=== PATIENT | male | born 1960 | race Caucasian/White ===

== ENCOUNTER 2016-07-31 00:45 | Inpatient (IN) | payer OTHER ==
[2016-07-31] MEDS ORDERED: HYDROmorphone 1 MG INJECTION IV ONE ×2 (01:12→02:12)
[2016-07-31] MEDS ORDERED: NS 1,000 ML IV ONE ×2 (01:12)
[2016-07-31] MEDS ORDERED: SODIUM CHLORIDE 0.9% 3 ML FLUSH FLUSH PRN (01:12)
[2016-07-31] MEDS ORDERED: ONDANSETRON HCL 4 MG/2 ML VIAL IV ONE (01:12)
--- NOTE | 2016-07-31 01:20 | EDPRACDOC ---
- General Information Chief Complaint: Abdominal Pain Stated Complaint: ABDOMINAL PAIN Time Seen by Provider: 07/31/16 01:12 Information Source: Patient Mode Of Arrival: Car Home Medications: Home Medications Atorvastatin Calcium [Lipitor] 40 mg PO DAILY 01/02/13 Azelastine HCl 2 inh NS BID 01/02/13 Esomeprazole Mag Trihydrate [Nexium] 40 mg PO DAILY 01/02/13 Metformin HCl [Metformin HCl ER] 500 mg PO DAILY 01/02/13 Olmesartan/Amlodipin/Hcthiazid [Tribenzor 40-5-12.5 mg Tablet] 1 each PO DAILY 01/02/13 Allergies/Adverse Reactions: Allergies Allergy/AdvReac Type Severity Reaction Status Date / Time No Known Allergies Allergy Verified 01/02/13 11:39 - 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 PT STATES HIS ABD FEELS TIGHT AND HE HAS NOT HAD BOWEL MOVEMENT TODAY. Pain Location: Reports: Diffuse Pain Context: Reports: Spontaneous Pain Severity: Severe Pain Quality: Reports: Aching, Sharp, Stabbing Pain Radiation: Reports: No Radiation Modifying Factors: improves with: Position, Movement Associated Signs & Symptoms: Reports: Nausea Oral Intake: Decreased Urinary Output: Normal - Treatment Prior to ED Arrival Reported Medications/Treatment [facility] Treatment BLS IV No ED Past Medical History - History Reviewed Yes Nurses notes reviewed and agree except as marked Travel Outside of [place] in the Last 3 Months?: No - Patient Medical History Cardiac History: Reports: Hypertension, Hypercholesterolemia Psychological History: Denies: Depression Systemic History: Reports: Diabetes (PREDIABETES PER PT). Denies: Cancer - Family Medical History Reports: Hypertension (PARENTS), Diabetes (PARENTS), Cancer (MOM-KIDNEY). Denies: Stroke, Cardiac Disorders - Social Medical History Smoking Status: Never smoker ETOH: None Substance Abuse: None Lives With: Spouse Lives In: Home EDM Review of Systems - Review of Systems ROS Negative Except as Marked: Yes All systems reviewed and were negative except as marked Constitutional: No Symptoms Reported. negative: Fever, Chills, Weakness, Fatigue, Loss of Appetite Eyes: No Symptoms Reported. negative: Redness, Blurred Vision, Double Vision, Discharge, Pain, Light Sensitive, Photophobia Ears: No Symptoms Reported. negative: Pain, Hearing Loss, Drainage, Ear Pulling Throat: No Symptoms Reported. negative: Pain, Swelling Nose: No Symptoms Reported. negative: Congestion, Bleeding, Discharge, Injection, Swelling, Deformity, Ecchymosis, Tender, Abrasion, Laceration Mouth: No Symptoms Reported. negative: Pain, Drooling Respiratory: No Symptoms Reported. negative: Cough, Brassy Cough, Barky Cough, Shortness of Breath, Wheezing, Hemoptysis Cardiovascular: No Symptoms Reported. negative: Chest Pain, Cyanosis, Edema, Orthopnea, Palpitations, PND, Syncope, Skin Mottling Gastrointestinal: Nausea, Pain. negative: Constipation, Diarrhea, Formula Intolerance, Melena, Vomiting Genitourinary: No Symptoms Reported. negative: Dysuria, Hematuria, Frequency, Discharge, Bleeding, Testicular Pain, Neurological: No Symptoms Reported. negative: Headache, Dizziness, Seizure, Numbness, Weakness, Speech Difficulty, Gait Difficulty Musculoskeletal: No Symptoms Reported. negative: Neck, Chestwall, Ribs, Back, Shoulder, Arm, Elbow, Forearm, Wrist, Hand, Pelvis, Hip, Femur, Knee, Leg, Ankle , Foot Integumentary: No Symptoms Reported. negative: Itching, Rash, Bruising, Wound Allergic/Immunologic: No Symptoms Reported. negative: Hives, Itching Hematologic: No Symptoms Reported. negative: Lymphadenopathy, Easy Bruising, Easy Bleeding Endocrine: No Symptoms Reported. negative: Weight Gain, Weight Loss Psychiatric: No Symptoms Reported. negative: Anxiety, Depression, Hallucinations, Insomnia, Suicidal - Physical Exam Constitutional: Alert (Awake, UNCOMFORTABLE) Oriented to: Time, Person, Place Last recorded Vital Signs: Last Vital Signs Temp 98.6 F 07/31/16 00:49 Pulse 75 07/31/16 03:18 Resp 20 07/31/16 03:18 BP 115/74 07/31/16 03:18 Pulse Ox 94 07/31/16 03:18 Oxygen Pulse Oxygen Saturation 94 O2 Device Nasal Cannula Oxygen Flow Rate 2 Fraction of Inspired Oxygen ( FIO2) - HEENT Head: Normal ( normocephalic) Eye Exam: Normal (PERRL, EOMI, Sclera white) Oropharynx: Normal (Pharynx:Moist without exudate,Gums-no swelling) Tympanic Membrane: Normal ENT EAC: Normal TMJ: Normal Nose: No Symptoms Reported (septum midline) Neck: Normal (FROM, trachea at midline) - Respiratory/Cardiovascular Respiratory: Normal - CTA (BBS clear to auscultation without adventitious sounds ) Cardiovascular: Normal (RRR without murmur, gallop or rub) - GI Auscultation: Normal (NABS) Palpation: Normal (Soft,No rebound or guarding, non distended) Tenderness: Moderate, Guarding, RUQ, Epigastric, Periumbilical Rodriguez's Sign: Negative Rectal Exam: Normal - Bladder: Normal - Musculoskeletal Back: Normal (Non-Tender) Extremities: Normal (Normal tone, Pulses 2+ No cyanosis or edema, FROM) - Integumentary Skin: Normal, Warm, Dry Lymphatics: Normal (no adenopathy) - Neurologic Memory Impaired: Normal Motor Function: Normal (Normal tone, Pulses 2+ No cyanosis or edema, FROM) Cranial Nerve: Normal (CN II-X11 intact sensation, strength 5/5) Cerebellar: Normal Mood Description: Normal Perception: Normal - Differential Diagnosis Bowel Obstruction, Cholecystitis, Cholelithiasis, Pancreatitis, UTI - Results 07/31/16 01:11 07/31/16 01:11 WBC 18.0 xk/uL (3.8-10.8) H 07/31/16 01:11 RBC 5.22 xM/uL (4.70-6.10) 07/31/16 01:11 Hgb 13.8 g/dL (14.0-18.0) L 07/31/16 01:11 Hct 41.6 % (42-52) L 07/31/16 01:11 MCV 80 fL (80-94) 07/31/16 01:11 MCH 26.4 pg (27-32) L 07/31/16 01:11 MCHC 33.2 g/dl (33-36) 07/31/16 01:11 RDW 14.3 % (11.5-14.5) 07/31/16 01:11 Plt Count 341 xk/uL (130-400) 07/31/16 01:11 MPV 8.4 fL (7.4-10.4) 07/31/16 01:11 Neut % (Auto) 69.2 % (45-76) 07/31/16 01:11 Lymph % (Auto) 22.8 % (17-44) 07/31/16 01:11 [place] % (Auto) 6.4 % (3-10) 07/31/16 01:11 Eos % (Auto) 0.9 % (0-5) 07/31/16 01:11 Baso % (Auto) 0.7 % (0-2) 07/31/16 01:11 Absolute Neuts (auto) 12.42 xk/uL (1.7-8.2) H 07/31/16 01:11 Absolute Lymphs (auto) 3.96 xk/uL (0.65-4.75) 07/31/16 01:11 Sodium 136 mEq/L (137-146) L 07/31/16 01:11 Potassium 3.3 mEq/L (3.5-5.1) L 07/31/16 01:11 Chloride 96 mEq/L (98-107) L 07/31/16 01:11 Carbon Dioxide 26 mMOL/L (22-33) 07/31/16 01:11 Anion Gap 17 mEq/L (8-16) H 07/31/16 01:11 BUN 16 MG/DL (9-20) 07/31/16 01:11 Creatinine 1.00 MG/DL (0.66-1.25) 07/31/16 01:11 Estimated GFR (MDRD) > 60 mL/min (>=60) 07/31/16 01:11 Glucose 193 MG/DL (70-99) H 07/31/16 01:11 Calculated Osmolality 268 MOs/Kg (270-290) L 07/31/16 01:11 Lactic Acid 2.8 mEq/L (0.7-2.1) H 07/31/16 01:30 Calcium 10.0 MG/DL (8.4-10.2) 07/31/16 01:11 Total Bilirubin 0.8 MG/DL (0.2-1.3) 07/31/16 01:11 AST 24 IU/L (17-59) 07/31/16 01:11 ALT 36 IU/L (21-72) 07/31/16 01:11 Alkaline Phosphatase 113 IU/L (38-126) 07/31/16 01:11 Total Protein 7.2 G/DL (6.3-8.2) 07/31/16 01:11 Albumin 4.3 G/DL (3.5-5.0) 07/31/16 01:11 Lipase 91 U/L (23-300) 07/31/16 01:11 Urine Color Yellow 07/31/16 01:30 Urine Clarity Clear 07/31/16 01:30 Urine pH 6.0 (5.0-8.0) 07/31/16 01:30 Ur Specific [place] 1.015 (1.003-1.035) 07/31/16 01:30 Urine Protein 1+ (NEG/TRACE) H 07/31/16 01:30 Urine Glucose (UA) Neg (NEGATIVE) 07/31/16 01:30 Urine Ketones 1+ (NEGATIVE) H 07/31/16 01:30 Urine Occult Blood Neg (NEG/TRACE) 07/31/16 01:30 Urine Nitrite Neg (NEGATIVE) 07/31/16 01:30 Urine Bilirubin Neg (NEGATIVE) 07/31/16 01:30 Urine Urobilinogen <2.0 MG/DL (0-1) 07/31/16 01:30 Ur Leukocyte Esterase Neg (NEGATIVE) 07/31/16 01:30 Urine Mucus Large (NEG/OCC) 07/31/16 01:30 Lab Results 07/31/16 07/31/16 07/31/16 01:30 01:30 01:11 WBC 18.0 H RBC 5.22 Hgb 13.8 L Hct 41.6 L MCV 80 MCH 26.4 L MCHC 33.2 RDW 14.3 Plt Count 341 MPV 8.4 Neut % (Auto) 69.2 Lymph % (Auto) 22.8 [place] % (Auto) 6.4 Eos % (Auto) 0.9 Baso % (Auto) 0.7 Absolute Neuts (auto) 12.42 H Absolute Lymphs (auto) 3.96 Sodium Potassium Chloride Carbon Dioxide Anion Gap BUN Creatinine Estimated GFR (MDRD) Glucose Calculated Osmolality Lactic Acid 2.8 H Calcium Total Bilirubin AST ALT Alkaline Phosphatase Total Protein Albumin Lipase Urine Color Yellow Urine Clarity Clear Urine pH 6.0 Ur Specific [place] 1.015 Urine Protein 1+ H Urine Glucose (UA) Neg Urine Ketones 1+ H Urine Occult Blood Neg Urine Nitrite Neg Urine Bilirubin Neg Urine Urobilinogen <2.0 Ur Leukocyte Esterase Neg Urine Mucus Large 07/31/16 01:11 WBC RBC Hgb Hct MCV MCH MCHC RDW Plt Count MPV Neut % (Auto) Lymph % (Auto) [place] % (Auto) Eos % (Auto) Baso % (Auto) Absolute Neuts (auto) Absolute Lymphs (auto) Sodium 136 L Potassium 3.3 L Chloride 96 L Carbon Dioxide 26 Anion Gap 17 H BUN 16 Creatinine 1.00 Estimated GFR (MDRD) > 60 Glucose 193 H Calculated Osmolality 268 L Lactic Acid Calcium 10.0 Total Bilirubin 0.8 AST 24 ALT 36 Alkaline Phosphatase 113 Total Protein 7.2 Albumin 4.3 Lipase 91 Urine Color Urine Clarity Urine pH Ur Specific [place] Urine Protein Urine Glucose (UA) Urine Ketones Urine Occult Blood Urine Nitrite Urine Bilirubin Urine Urobilinogen Ur Leukocyte Esterase Urine Mucus - Departure Disposition: Admit IP To This Hospital Condition: Stable Final Diagnosis: Small bowel obstruction Instructions: Bowel Obstruction (ED) Education/Counseling Given To: Patient Education/Counseling Given Regarding: Diagnosis, Treatment, Prognosis, Follow Up Referrals: None,No Provider [NonStaff] - One Week Prescriptions: No Action Azelastine HCl 2 inh NS BID Atorvastatin Calcium [Lipitor] 40 mg PO DAILY Olmesartan/Amlodipin/Hcthiazid [Tribenzor 40-5-12.5 mg Tablet] 1 each PO DAILY Metformin HCl [Metformin HCl ER] 500 mg PO DAILY Esomeprazole Mag Trihydrate [Nexium] 40 mg PO DAILY Decision to Admit Time: 03:25 Decision to admit date: 07/31/16 Decision to admit: from ED - Physician Consulted Surgery Time Called: 03:25 Provider Called: Monster Bain (WILL ADMIT)
[2016-07-31 01:27] LABS: AUTOMATED BASOPHIL 0.7 % (0-2); AUTOMATED EOSINOPHIL 0.9 % (0-5); AUTOMATED LYMPH 22.8 % (17-44); AUTOMATED MONOCYTE 6.4 % (3-10); AUTOMATED NEUTROPHIL 69.2 % (45-76); MPV 8.4 fL (7.4-10.4)
[2016-07-31 01:35] LABS: BLOOD UREA NITROGEN 16 MG/DL (9-20); CALCULATED OSMOLALITY 268 MOs/Kg (270-290); CHLORIDE 96 mEq/L (98-107); GLUCOSE 193 MG/DL (70-99); SODIUM LEVEL 136 mEq/L (137-146); TOTAL PROTEIN 7.2 G/DL (6.3-8.2)
[2016-07-31 01:52] LABS: LEUKOCYTES/URINE NEG (NEGATIVE); NITRITE/URINE NEG (NEGATIVE); URINE OCCULT BLOOD NEG (NEG/TRACE)
[2016-07-31] MEDS ORDERED: Pharmacy Review for Metformin - IV Contrast Given SCH (02:00)
[2016-07-31] MEDS ORDERED: PROMETHAZINE 25 MG/ML VIAL IV ONE (02:42)
[2016-07-31] MEDS ORDERED: HYDROmorphone 1 MG INJECTION IV SCH (03:00)
--- NOTE | 2016-07-31 03:04 | DIRPT ---
CLINICAL DATA: Diffuse lower abdominal pain and nausea. EXAM: CT ABDOMEN AND PELVIS WITH CONTRAST TECHNIQUE: Multidetector CT imaging of the abdomen and pelvis was performed using the standard protocol following bolus administration of intravenous contrast. CONTRAST: 100 mL Isovue 370 COMPARISON: 09/06/2009 FINDINGS: The lung bases are clear. Moderate-sized esophageal hiatal hernia. Mild dilatation of lower esophagus is fluid filled suggesting reflux or dysmotility. Mild diffuse fatty infiltration of the liver. The gallbladder, spleen, pancreas, adrenal glands, kidneys, abdominal aorta, inferior vena cava, and retroperitoneal lymph nodes are unremarkable. Stomach is decompressed. Mild dilatation of fluid-filled small bowel with transition zone in the right lower quadrant. There is evidence of wall thickening in the small bowel at the transition zone. Mild edema in the adjacent very. This could represent inflammatory stricture. Consider Crohn's disease or enteritis. Ischemia felt less likely. Colon is not abnormally distended. Stool-filled colon. Pelvis: The appendix is normal. Prostate gland is enlarged, measuring 4.9 cm transverse dimension. Bladder wall is not thickened. Small amount of free fluid in the pelvis is likely reactive. No pelvic mass or lymphadenopathy. Degenerative changes in the spine. No destructive bone lesions. IMPRESSION: Mildly dilated fluid-filled small bowel with transition zone in the right lower quadrant. There appears to be wall thickening at the transition zone suggesting inflammatory stricture. Consider inflammatory bowel disease or enteritis. Mild mucosal edema and small amount of fluid in the pelvis. Electronically Signed By: José Luis Dai M.D. On: 07/31/2016 03:02
[2016-07-31] MEDS ORDERED: SIMETHICONE 80 MG TAB PO PRN (03:32)
[2016-07-31] MEDS ORDERED: IBUPROFEN 600 MG TAB PO PRN (03:32)
[2016-07-31] MEDS ORDERED: DEXTROSE 25 GM/50 ML PFS IV PRN (03:32)
[2016-07-31] MEDS ORDERED: PROMETHAZINE 25 MG/ML VIAL IV PRN (03:32)
[2016-07-31] MEDS ORDERED: ACETAMINOPHEN 325 MG/TAB TABLET PO PRN (03:32)
[2016-07-31] MEDS ORDERED: ONDANSETRON HCL 4 MG/2 ML VIAL IV PRN (03:32)
[2016-07-31] MEDS ORDERED: LORAZEPAM 2 MG/ML VIAL IV PRN (03:32)
[2016-07-31] MEDS ORDERED: ACETAMINOPHEN 650 MG SUPP PR PRN (03:32)
[2016-07-31] MEDS ORDERED: DIPHENHYDRAMINE 25 MG CAP PO PRN (03:32)
[2016-07-31] MEDS ORDERED: GLUCOSE (ORAL GEL) 15 GM TUBE PO PRN (03:32)
[2016-07-31] MEDS ORDERED: GLUCAGON 1 MG VIAL SQ PRN (03:32)
[2016-07-31] MEDS ORDERED: Aluminum;Magnesium;Simethicone 30 ML UDC PO PRN (03:32)
[2016-07-31] MEDS ORDERED: Albuterol/Ipratropium Neb 3 ML NEB NEB PRN ×2 (03:32)
[2016-07-31] MEDS ORDERED: MORPHINE 2 MG/ML INJECTION IV PRN (03:32)
[2016-07-31] MEDS: FENTANYL 100 MCG/2 ML VIAL IV ONE ×2 (03:39→04:02)
[2016-07-31] MEDS: HYDROmorphone 1 MG INJECTION IV SCH ×4 (03:39→06:04)
[2016-07-31 04:27] VITALS: BMI 31.8
[2016-07-31] MEDS: SODIUM CHLORIDE 0.9% 3 ML FLUSH FLUSH SCH ×2 (04:53→17:56)
[2016-07-31] MEDS: LR 1,000 ML IV SCH ×4 (04:57→19:58)
[2016-07-31] MEDS ORDERED: Vaccine Screening Complete SCH (05:00)
[2016-07-31] MEDS: REGULAR INSULIN 100 UNITS/ML - 3 ML VIAL SQ SCH ×4 (07:22→23:12)
--- NOTE | 2016-07-31 09:56 | HISTPHYS ---
- Chief Complaint abdominal pain - History of Present Illness This is a 56 year old male that began having abdominal pain on 07/30/16. He reports that it became worse at midnight, prompting him to go to the emergency department. He reports that he had emesis x [address] scan. He reports that he had a regular bowel movement on the morning before admission to the hospital. He denies any blood in his stool. He reports that he had felt very bloated. He states that currently he does not feel bloated and that the pain has resolved. He denies any sharp pains in his abdomen. The patient reports that in 1980 he became very sick, vomited and 'tore the lining of his stomach'. The patient reports that he has had a colonoscopy by Dr. Charlton three or four years ago. - Medical History Cardiac History: Reports: Hypertension Respiratory History: Denies: No Significant History, Asthma, COPD, Bronchitis, Asbestosis, Aspiration Pneumonia, Cough, Chronic Bronchitis, Pneumonia, Emphysema, Pulmonary Embolism, Other GI/ History: Denies: No Significant History, Renal Disease, Renal Failure, Renal (Kidney) Cancer, Kidney (Renal Surgery), Urinary Tract Infection, Kidney Stones, Liver Failure, Gastroesophageal Reflux, Ulcer, IBD, Diverticulosis, Pancreatitis, BPH, PMH GI Yes/No Other Musculoskeletal History: Denies: No Significant History, Arthritis, Gout, Rheumatoid Arthritis, Osteoarthritis, Other Systemic History: Reports: Diabetes Neurological History: Denies: No Significant History, Cerebrovascular Accident, Seizures, Migraine, Dementia, Epilepsy, [place] Syndrome, Parkinson's, Metabolic encephalopathy, Multiple Sclerosis, Myasthenia Gravis, Toxic Encephalopathy, Other Psychological History: Denies: No Significant History, Depression, Anxiety, Schizophrenia, Bipolar Disorder, Alcoholism, Substance Use Disorder, PMH Psychological hx Yes/No Other - Surgical History Denies: No Significant History, Appendectomy, Cholecystectomy, CABG, Hysterectomy, Angioplasty, Cardiac Catheterization, Hernia Surgery, Tonsillectomy, Tonsillectomy/Adnoidectomy, Other - Medictions/Allergies Allergies No Known Allergies Allergy (Verified 07/31/16 04:35) Current Medication List: Reviewed Home Medications Atorvastatin Calcium [Lipitor] 20 mg PO DAILY 01/02/13 Azelastine HCl 2 inh NS BID 01/02/13 Esomeprazole Mag Trihydrate [Nexium] 40 mg PO DAILY 01/02/13 Olmesartan/Amlodipin/Hcthiazid [Tribenzor 40-5-12.5 mg Tablet] 1 each PO DAILY 01/02/13 Sitagliptin Phos/Metformin HCl [Janumet 50-1,000 mg Tablet] 1 each PO BID - Family History Reports: Hypertension (PARENTS), Diabetes (PARENTS), Cancer (MOM-KIDNEY). Denies: Stroke, Cardiac Disorders - Social History Travel Outside of [place] in the Last 3 Months?: No Lives: With Family Smoking Status: Never smoker Social History: Denies: Amphetamine Use, Alcohol Use, Barbiturate Use, Benzodiazipine Use, Cocaine Use, Heroin Use, Marijuana Use, Methadone Use, MDMA (Ecstasy) Use, Substance Use Disorder - Review of Systems Yes All systems reviewed and were negative except as marked (Twelve systems reviewed with the patient and the patient's .) - Physical Exam Vital Signs: Initial Vitals Temperature 98.6 F 07/31/16 00:49 Pulse Rate 93 07/31/16 00:49 Respiratory Rate 20 07/31/16 00:49 Blood Pressure 139/80 07/31/16 00:49 Pulse Oxygen Saturation 100 07/31/16 00:49 Constitutional: No apparent distress, Alert, Well nourished, Well appearing. negative: Distress, Decreased Consciousness, Restless, Somnolent, Uncooperative Oriented to: Time, Person - HEENT Head: Normal Eye: Normal Oropharynx: Normal ENT EAC: Normal Nose: Other (Discomfort from nasogastric tube) Respiratory: Normal - CTA Cardiovascular: Normal - GI Auscultation: Normal, Other (Not distended at this time.) Palpation: negative: Enlarged liver, Enlarged spleen, Fluid Wave Tenderness: Non tender. negative: Guarding, Rebound, Rigidity Rectal Exam: Deferred - Exam Deferred: Yes - Musculoskeletal Extremities: Normal. negative: Edema - Integumentary Skin: Normal (Clean, dry, and intact. No rashes. No lesions.) Lymphatics: Normal (No cervical lymphadenopathy. No supraclavicular lymphadenopathy.) - Neurologic Memory Impaired: Normal Motor Function: Normal (Motor 5/5 throughout.Normal tone, Pulses 2+ No cyanosis or edema, FROM) Cranial Nerve: Normal (CN II-XII intact sensation, strength 5/5) Cerebellar: Normal (Babinski: toes downgoing bilaterally. Intact Finger to nose. Sensory grossly intact to light touch. Intact rapid alternating movements bilaterally. No pronator drift.) Mood Description: Normal (Fully oriented. Normal and appropriate affect.) Perception: Normal (Normal and appropriate affect.) - Lab Results 07/31/16 01:11 07/31/16 01:11 - Diagnostic Findings Final Report CLINICAL DATA: Diffuse lower abdominal pain and nausea. EXAM: CT ABDOMEN AND PELVIS WITH CONTRAST TECHNIQUE: Multidetector CT imaging of the abdomen and pelvis was performed using the standard protocol following bolus administration of intravenous contrast. CONTRAST: 100 mL Isovue 370 COMPARISON: 09/06/2009 FINDINGS: The lung bases are clear. Moderate-sized esophageal hiatal hernia. Mild dilatation of lower esophagus is fluid filled suggesting reflux or dysmotility. Mild diffuse fatty infiltration of the liver. The gallbladder, spleen, pancreas, adrenal glands, kidneys, abdominal aorta, inferior vena cava, and retroperitoneal lymph nodes are unremarkable. Stomach is decompressed. Mild dilatation of fluid-filled small bowel with transition zone in the right lower quadrant. There is evidence of wall thickening in the small bowel at the transition zone. Mild edema in the adjacent very. This could represent inflammatory stricture. Consider Crohn's disease or enteritis. Ischemia felt less likely. Colon is not abnormally distended. Stool-filled colon. Pelvis: The appendix is normal. Prostate gland is enlarged, measuring 4.9 cm transverse dimension. Bladder wall is not thickened. Small amount of free fluid in the pelvis is likely reactive. No pelvic mass or lymphadenopathy. Degenerative changes in the spine. No destructive bone lesions. IMPRESSION: Mildly dilated fluid-filled small bowel with transition zone in the right lower quadrant. There appears to be wall thickening at the transition zone suggesting inflammatory stricture. Consider inflammatory bowel disease or enteritis. Mild mucosal edema and small amount of fluid in the pelvis. Electronically Signed By: José Luis Dai M.D. On: 07/31/2016 03:02 - Assessment/Plan (1) Small bowel obstruction K56.69 - OTHER INTESTINAL OBSTRUCTION Acute Present on Admission: Yes Comment: We will continue nasogastric tube, nil per os status, intravenous fluids and close monitoring. I will plan for follow up abdominal x ray. I will consult Dr. Charlton for opinion regarding question of inflammatory bowel disease. No indication for surgical intervention at this time. Dr. Lininger will see patient 08/01/16 and 08/02/16. (2) Diabetes mellitus E11.9 - TYPE 2 DIABETES MELLITUS WITHOUT COMPLICATIONS Chronic Present on Admission: Yes type 2 without complication D D P D D L C Comment: Sliding scale insulin has been initiated. (3) Hypertension I10 - ESSENTIAL (PRIMARY) HYPERTENSION Chronic Present on Admission: Yes essential hypertension I10 - Essential (primary) hypertension Comment: Monitor blood pressure. Home medications will be restarted. Case Care Discussed with: Patient, Family
[2016-07-31] MEDS ORDERED: POTASSIUM CHLORIDE 20 MEQ/15 ML ORAL SOLN PO ONE (10:21)
[2016-07-31] MEDS ORDERED: AZELASTINE 137 MCG/SPRAY NASAL SPRAY NAS SCH (11:00)
[2016-07-31] MEDS ORDERED: ENOXAPARIN 40 MG/0.4 ML PFS SQ SCH (11:00)
--- NOTE | 2016-07-31 11:16 | DIRPT ---
CLINICAL DATA: Small bowel obstruction EXAM: ABDOMEN - 2 VIEW COMPARISON: 230 hours FINDINGS: NG tube tip is in the antrum of the stomach. No free intraperitoneal gas. Dilated small bowel loops with air-fluid levels are noted. There is gas and stool in the colon. IMPRESSION: Stable partial small bowel obstruction pattern. Electronically Signed By: Flavio Carrillo M.D. On: 07/31/2016 11:13
[2016-07-31] MEDS: KCl 10 mEq/100 ml Premix (Run) 10 MEQ/100 ML RTU IV SCH ×2 (12:06→14:20)
--- NOTE | 2016-07-31 13:55 | PCM.CONSGI ---
Consult Date: 07/31/16 Consult Requesting Physician: Monster Bain Consult Reason: Other (Partial small bowel obstruction) - History of Present Illness Mr. Phan is a healthy 56-year-old male who presented with periumbilical pain CT evidence small-bowel obstruction. Patient was admitted with NG tube placed by surgery GI consult was obtained Colonoscopy 7-13 normal terminal ilium normal colonoscopy Mr. Phan was having no GI complaints on the morning prior to his admission. He had no unusual food ingestion during the day. He ate supper without difficulty. He did develop some mild abdominal distress at approximately 2 o'clock in the afternoon. This was unusual for him. He had a somewhat urgent bowel movement and the discomfort resolved. Later in the afternoon approximately 10 o'clock at severe periumbilical pain and nausea. The pain became so severe he presented to the emergency room. He had never had pain like this before. He describes it is coming in waves crampy sensation causing him to be in double. He has had no abdominal surgery in the past. He did have a upper respiratory infection 1 week ago but did not take any antibiotics. He does not have a lot of problem with heartburn or indigestion. He normally has no problem with abdominal bloating. He denies significant problem with constipation or loose stools. An NG tube was placed after his admission. He had a large volume of liquid removed. This relieved a lot of his discomfort and nausea. The NG tube continues in place. - Past Medical History Cardiac History: Reports: Hypertension. Denies: No Significant History, Cardiac Catheterization, CABG Respiratory History: Denies: No Significant History, Asthma, COPD, Bronchitis, Asbestosis, Aspiration Pneumonia, Cough, Chronic Bronchitis, Pneumonia, Emphysema, Pulmonary Embolism GI/ History: Denies: No Significant History, Diverticulosis, GERD, Pancreatitis, Liver Failure, Kidney Stones, Renal Disease, Renal Failure, Renal Cancer, Ulcer, Urinary Tract Infection Musculoskeletal History: Denies: No Significant History, Arthritis, Gout, Rheumatoid Arthritis, Osteoarthritis Systemic History: Reports: Diabetes. Denies: No Significant History Neurological History: Denies: No Significant History, Cerebrovascular Accident, Seizures, Dementia, Migraine Psychological History: Denies: No Significant History, Alcoholism, Anxiety, Bipolar Disorder, Depression, Schizophrenia, Substance Use Disorder - Surgical History Past Surgical History: Denies: No Significant History, Angioplasty, Appendectomy , CABG, Cholecystectomy, Hernia Surgery, Hysterectomy, Kidney Surgery, T&A - Procedure History Procedure History: Reports: Endoscopy, Colonoscopy - Family History Family History: Reports: Diabetes (PARENTS), Cancer (MOM-KIDNEY), Hypertension ( PARENTS). Denies: Cardiac Disorders, Renal Disease, Stroke - Allergies Allergies No Known Allergies Allergy (Verified 07/31/16 04:35) - Medications Home Medications Atorvastatin Calcium [Lipitor] 20 mg PO DAILY 01/02/13 Azelastine HCl 2 inh NS BID 01/02/13 Esomeprazole Mag Trihydrate [Nexium] 40 mg PO DAILY 01/02/13 Olmesartan/Amlodipin/Hcthiazid [Tribenzor 40-10-25 mg Tablet] 1 each PO DAILY Sitagliptin Phos/Metformin HCl [Janumet 50-1,000 mg Tablet] 1 each PO BID - Social History Lives: With Family Smoking Status: Never smoker Social History: Denies: Amphetamine Use, Alcohol Use, Barbiturate Use, Benzodiazipine Use, Cocaine Use, Heroin Use, Marijuana Use, Methadone Use, MDMA (Ecstasy) Use, Substance Use Disorder - Review of Systems Constitutional: negative: Chills, Fatigue, Loss of Appetite, Weight loss Eyes: negative: Discharge Ears: negative: Hearing Loss Throat: negative: Hoarseness Respiratory: negative: Cough, Hemoptysis, Shortness of Breath Cardiovascular: negative: Chest Pain, Edema Gastrointestinal: Nausea, Vomiting, Abdominal Pain. negative: Melena, Hematochezia, Heartburn Genitourinary: negative: Dysuria, Hematuria Neurological: negative: Dizziness, Gait Difficulty Integumentary: negative: Bruising Allergic/Immunologic: negative: Itching Hematologic: negative: Easy Bruising Psychiatric: negative: Anxiety - Exam Vital Signs: Temperature: 98.7 F (07/31/16 10:43) HR: 76 (07/31/16 10:43) RR: 18 (07/31/16 10:43) BP: 116/69 (07/31/16 10:43) Pulse Ox: 99 (07/31/16 10:43) General: Alert, Oriented x3, Mild distress HEENT: negative: Icteric Sclera Respiratory: Normal - CTA. negative: Accessory Muscle Use Cardiovascular: Regular rate Gastrointestinal: Soft, Distended (slighlty distended), Bowel Sounds. negative : Tender, Hepatosplenomegaly Extremities: negative: Edema Skin: Warm,Dry and Intact Psych/Mental Status: Appropriate - Labs Result Diagrams: 07/31/16 01:11 07/31/16 01:11 Exam(s): [id number] CT/CT ABD-PELV W/IV CM CLINICAL DATA: Diffuse lower abdominal pain and nausea. IMPRESSION: Mildly dilated fluid-filled small bowel with transition zone in the right lower quadrant. There appears to be wall thickening at the transition zone suggesting inflammatory stricture. Consider inflammatory bowel disease or enteritis. Mild mucosal edema and small amount of fluid in the pelvis. - Assessment and Plan (1) Small bowel obstruction Acute K56.69 - OTHER INTESTINAL OBSTRUCTION (2) Diabetes mellitus Chronic E11.9 - TYPE 2 DIABETES MELLITUS WITHOUT COMPLICATIONS type 2 without complication D D P D D L C (3) Hypertension Chronic I10 - ESSENTIAL (PRIMARY) HYPERTENSION essential hypertension I10 - Essential (primary) hypertension Recommendations: 1. Continue NG suction hyper hydration nausea and pain control 2. Monitor labs 3. Serial abdominal films 4. Ppi therapy 5. I will follow with you further recommendations depending on his clinical course
[2016-07-31] MEDS: CEPACOL LOZENGES PO PRN ×3 (14:20→19:58)
[2016-07-31] MEDS: ENOXAPARIN 60 MG/0.6 ML PFS SQ SCH (16:32)
[2016-07-31] MEDS: ERTAPENEM 1 GM in NS 100 ML IV SCH (16:32)
[2016-07-31] MEDS: PANTOPRAZOLE 40 MG VIAL IV SCH (16:33)
[2016-07-31] MEDS: AZELASTINE 137 MCG/SPRAY NASAL SPRAY NAS SCH (19:58)
[2016-08-01 03:36] LABS: AUTOMATED BASOPHIL 0.6 % (0-2); AUTOMATED EOSINOPHIL 2.6 % (0-5); AUTOMATED LYMPH 26.4 % (17-44); AUTOMATED MONOCYTE 9.7 % (3-10); AUTOMATED NEUTROPHIL 60.7 % (45-76); MPV 8.4 fL (7.4-10.4)
[2016-08-01] MEDS: PANTOPRAZOLE 40 MG VIAL IV SCH ×2 (03:51→14:21)
[2016-08-01] MEDS: LR 1,000 ML IV SCH (04:59)
[2016-08-01] MEDS: REGULAR INSULIN 100 UNITS/ML - 3 ML VIAL SQ SCH ×3 (05:03→16:58)
[2016-08-01] MEDS: SODIUM CHLORIDE 0.9% 3 ML FLUSH FLUSH SCH ×2 (05:03→15:38)
[2016-08-01] MEDS ORDERED: PANTOPRAZOLE 40 MG TAB PO SCH (06:00)
[2016-08-01] MEDS: AZELASTINE 137 MCG/SPRAY NASAL SPRAY NAS SCH ×2 (07:34→19:51)
[2016-08-01] MEDS: AMLODIPINE 10 MG TAB PO SCH (07:35)
[2016-08-01] MEDS: ATORVASTATIN 20 MG TAB PO SCH (07:35)
[2016-08-01] MEDS: OLMESARTAN 40 MG TABLET PO SCH (07:35)
[2016-08-01] MEDS: HYDROCHLOROTHIAZIDE 25 MG TAB PO SCH (07:35)
[2016-08-01] MEDS ORDERED: Non-Formulary Medication ITEM (Esomeprazole Mag Trihydrate [Nexium] 40 MG) PO SCH (09:00)
[2016-08-01] MEDS ORDERED: AMLODIPIN PO SCH (09:00)
[2016-08-01] MEDS ORDERED: [UNRECOGNIZED DRUG - OTHER] PO SCH (09:00)
[2016-08-01] MEDS ORDERED: OLMESARTAN PO SCH (09:00)
[2016-08-01] MEDS ORDERED: HYDROCHLOROTHIAZIDE 12.5 MG CAP PO SCH (09:00)
[2016-08-01] MEDS ORDERED: HCTHIAZID PO SCH (09:00)
[2016-08-01] MEDS ORDERED: AMLODIPINE 5 MG TAB PO SCH (09:00)
--- NOTE | 2016-08-01 09:26 | PCM.GIPROG ---
Progress Note (GI) Chief Complaint: Mr. Phan is a healthy 56-year-old male who presented with periumbilical pain CT evidence small-bowel obstruction. Patient was admitted with NG tube placed by surgery GI consult was obtained Colonoscopy 7- normal terminal ilium normal colonoscopy Mr. Phan did well overnight. He is having no abdominal pain. His abdomen is still slightly distended. He has had no bowel movements. His NG tube continues to be in place. - Physical Exam Vital Signs: Temperature: 98.2 F (08/01/16 07:41) HR: 76 (08/01/16 07:41) RR: 18 (08/01/16 07:41) BP: 129/81 (08/01/16 07:41) Pulse Ox: 94 (08/01/16 07:41) General: Alert, Oriented x3. negative: No acute distress Respiratory: negative: Accessory Muscle Use Cardiovascular: Regular rate Gastrointestinal: Soft, Distended (Mildly distended), Bowel Sounds (Active bowel sounds). negative: Tender Extremities: Edema Skin: Warm,Dry and Intact Neurological: Normal speech Psych/Mental Status: Appropriate Result Diagrams: 08/01/16 02:26 07/31/16 01:11 - Impression and Plan (1) Small bowel obstruction Acute K56.69 - OTHER INTESTINAL OBSTRUCTION Present on Admission: Yes (2) Diabetes mellitus Chronic E11.9 - TYPE 2 DIABETES MELLITUS WITHOUT COMPLICATIONS Present on Admission: Yes type 2 without complication D D P D D L C (3) Hypertension Chronic I10 - ESSENTIAL (PRIMARY) HYPERTENSION Present on Admission: Yes essential hypertension I10 - Essential (primary) hypertension Plan: 1. Continue NG suction hydration 2. Ppi therapy 3. Repeat x-rays today
--- NOTE | 2016-08-01 09:43 | PCM.SURGRO ---
- Subjective Patient: Reports: Feels better, Flatus, No Bowel Movement - Objective / Physical Exam Vital Signs: Temperature: 98.2 F (08/01/16 07:41) HR: 76 (08/01/16 07:41)RR: 18 (08/01/16 07: 41) BP: 129/81 (08/01/16 07:41)Pulse Ox: 94 (08/01/16 08:00) General: Alert Respiratory: Normal - CTA Cardiovascular: Regular rate and rhythm Gastrointestinal: Soft, Bowel Sounds. negative: Distended, Tender - Assessment and Plan (1) Small bowel obstruction Acute K56.69 - OTHER INTESTINAL OBSTRUCTION Present on Admission: Yes Comment/Plan: Patient denies any abdominal pain currently. He is passing flatus but denies any bowel movement. His abdominal exam is relatively benign. He is scheduled for an abdominal x-ray today. If this shows no evidence of bowel obstruction, could consider removal of the nasogastric tube and offering liquids orally. However he continues to have signs of at least a partial small-bowel obstruction , would consider small bowel follow-through series during this hospitalization. As it is currently the weekend the earliest this could be done is likely Wednesday.
--- NOTE | 2016-08-01 11:16 | DIRPT ---
CLINICAL DATA: Followup small bowel obstruction. EXAM: ABDOMEN - 2 VIEW COMPARISON: 07/31/2016 FINDINGS: An NG tube is present with tip overlying the distal stomach. Small bowel distention is decreased with no dilated bowel loops now identified. Nondistended gas-filled small bowel and colon noted. IMPRESSION: Interval decrease of mild small distension, now with no dilated bowel loops identified. NG tube again noted with tip overlying the distal stomach. Electronically Signed By: Paulo Gary M.D. On: 08/01/2016 11:13
[2016-08-01] MEDS: ERTAPENEM 1 GM in NS 100 ML IV SCH (11:57)
[2016-08-01] MEDS: ENOXAPARIN 60 MG/0.6 ML PFS SQ SCH (17:01)
[2016-08-01] MEDS: CEPACOL LOZENGES PO PRN (19:52)
[2016-08-02] MEDS: REGULAR INSULIN 100 UNITS/ML - 3 ML VIAL SQ SCH ×2 (00:42→05:42)
[2016-08-02] MEDS: LR 1,000 ML IV SCH ×3 (01:07→09:13)
[2016-08-02] MEDS: PANTOPRAZOLE 40 MG VIAL IV SCH (02:27)
[2016-08-02] MEDS: SODIUM CHLORIDE 0.9% 3 ML FLUSH FLUSH SCH (04:38)
[2016-08-02 06:24] VITALS: BP 137/75; PULSE 74; TEMP 98.9
[2016-08-02] MEDS: ATORVASTATIN 20 MG TAB PO SCH (08:34)
[2016-08-02] MEDS: OLMESARTAN 40 MG TABLET PO SCH (08:34)
[2016-08-02] MEDS: HYDROCHLOROTHIAZIDE 25 MG TAB PO SCH (08:35)
[2016-08-02] MEDS: AMLODIPINE 10 MG TAB PO SCH (08:35)
[2016-08-02] MEDS: AZELASTINE 137 MCG/SPRAY NASAL SPRAY NAS SCH (08:35)
--- NOTE | 2016-08-02 08:56 | PCM.GIPROG ---
Progress Note (GI) Chief Complaint: Mr. Phan is a healthy 56-year-old male who presented with periumbilical pain CT evidence small-bowel obstruction. Patient was admitted with NG tube placed by surgery GI consult was obtained Colonoscopy 7- normal terminal ilium normal colonoscopy Mr. Phan did well overnight. He has NG tube was removed. He is having no abdominal pain. He is tolerating sips of liquids well.. His abdomen is not distended. He has had no bowel movements. - Physical Exam Vital Signs: Temperature: 98.9 F (08/02/16 06:23) HR: 74 (08/02/16 06:23) RR: 18 (08/02/16 06:23) BP: 137/75 (08/02/16 06:23) Pulse Ox: 95 (08/02/16 06:23) General: Alert, Oriented x3. negative: No acute distress HEENT: negative: Icteric Sclera Respiratory: negative: Accessory Muscle Use Gastrointestinal: Soft, Bowel Sounds. negative: Distended, Tender Skin: Warm,Dry and Intact Neurological: Normal speech Psych/Mental Status: Appropriate Result Diagrams: 08/01/16 02:26 07/31/16 01:11 - Impression and Plan (1) Small bowel obstruction Acute K56.69 - OTHER INTESTINAL OBSTRUCTION Present on Admission: Yes Comment: Resolving doing well (2) Diabetes mellitus Chronic E11.9 - TYPE 2 DIABETES MELLITUS WITHOUT COMPLICATIONS Present on Admission: Yes type 2 without complication D D P D D [facility] C (3) Hypertension Chronic I10 - ESSENTIAL (PRIMARY) HYPERTENSION Present on Admission: Yes essential hypertension I10 - Essential (primary) hypertension Plan: 1. Continue sips of liquids advanced if tolerated 2. Encourage ambulation 3. Monitor physical exam 4. Consider small-bowel evaluation in the future if he continues to do well 5. After he recovers consider colonoscopy given his abnormal CT
--- NOTE | 2016-08-02 10:26 | PCM.DCS92 ---
- Final/Secondary Discharge Diagnosis (1) Small bowel obstruction Resolved K56.69 - OTHER INTESTINAL OBSTRUCTION Present on Admission: Yes Plan/Goal/Comment: Bowel function has recovered. He is moving his bowels. He has no nausea or vomiting. He has no abdominal pain. X-ray yesterday showed no evidence of obstruction. Plan discharge home today with outpatient follow-up with General surgery and Gastroenterology. Discharge Disposition: Home Discharge Condition: Stable Cognitive Discharge Status: Unimpaired Fuctional Discharge Status: Independent Physician Follow up/Referrals: Monster Bain DO [Staff Physician] - Call for Appointment Wilfrid Charlton MD [Staff Physician] - Listed Time Home Medications/ New Prescriptions: Continue Azelastine HCl 2 inh NS BID Atorvastatin Calcium [Lipitor] 20 mg PO DAILY Esomeprazole Mag Trihydrate [Nexium] 40 mg PO DAILY Sitagliptin Phos/Metformin HCl [Janumet 50-1,000 mg Tablet] 1 each PO BID Olmesartan/Amlodipin/Hcthiazid [Tribenzor 40-10-25 mg Tablet] 1 each PO DAILY Diet at Discharge: As Tolerated Activity: No Restrictions Call Office For: Worsening Symptoms, Fever over 101 F Discontinue use of:: Alcohol, All Illegal Substances, All Types of Tobacco - DC Summary Notes Hospital Course Note:: Discharge summary on patient named ROSALBA HERNANDEZ admitted to [facility] on 07/31/16 by Monster Bain DO. Date of discharge is 08/02/2016. Patient was admitted with at least a partial small-bowel obstruction. He had a nasogastric tube in place. Slowly his bowel function returned. Follow-up x- rays initially revealed slight improvement of his small-bowel obstruction and then ultimately no evidence of obstruction. He began moving his bowels well. Nasogastric tube was removed. He tolerated liquid diet. He had no fevers or chills. He had no further symptomatology. As his bowel function has recovered and he has no evidence of obstruction, he was deemed stable candidate for discharge home. He will resume his outpatient medications. He will also follow up with Dr. Bain and Dr. Charlton as an outpatient for continue surveillance and follow-up. Instructions were discussed at length the patient. He and his admitted verbal understanding to the discharge instructions at time of discharge. Please see the electronic medical record discharge summary for full details of instructions. The patient was subsequently discharged in stable condition.. Wound Care Surgical Site: No Ability To Perform Care (if applicable): Yes - Physical Exam Vital Signs: Initial Vitals Temperature 98.6 F 07/31/16 00:49 Pulse Rate 93 07/31/16 00:49 Respiratory Rate 20 07/31/16 00:49 Blood Pressure 139/80 07/31/16 00:49 Pulse Oxygen Saturation 100 07/31/16 00:49 Constitutional: No apparent distress Respiratory: Normal - CTA Cardiovascular: Normal - GI Auscultation: Normal Palpation: Normal Tenderness: Non tender
== END 2016-08-02 11:35 | disposition home or self-care (01) | DRG 390 ==
LOC: ED 00:45 → PCU 03:29 → MPS3 08-01 19:41
PROVIDERS: ADMIT Surgery; ATTEND Surgery
DX: K56.69 Other intestinal obstruction (principal); I10 Essential (primary) hypertension; E11.9 Type 2 diabetes mellitus without complications; Z79.84 Long term (current) use of oral hypoglycemic drugs; Z79.899 Other long term (current) drug therapy
CPT/HCPCS: 36415; 51798; 74020; 74177; 80053; 81001; 82962; 83605; 83690; 85025; 85651; 86140; 87040; 87086; 96361; 96372; 96374; 96375; 96376; 99284; A9698; G0237; J1170; J1335; J1650; J2405; J2550; J3010; J3480; J3490; J7030; S0164